=== PATIENT | male | born 1995 | race Caucasian/White ===

== ENCOUNTER 2021-12-09 19:51 | Emergency (ER) | payer MEDICAID, SELFPAY ==
[2021-12-09 21:39] VITALS: BP 0/0; PULSE 0; RESP 0; TEMP -17.7; TEMP 0; O2SAT 0
== END 2021-12-09 21:40 | disposition left against medical advice (07) ==
LOC: ER 21:25
PROVIDERS: Emergency Provider Emergency Medicine
DX: Z53.21 Procedure and treatment not carried out due to patient leaving prior to being seen by health care provider (principal)
CPT/HCPCS: 99211

== ENCOUNTER → 2022-04-28 08:22 | Outpatient (CLI) | payer MEDICAID, SELFPAY ==
--- NOTE | 2022-04-28 08:31 | US_ITS ---
FINAL REPORT CLINICAL HISTORY: ELEVATED LIVER ENZYMES FINDINGS: Sonographic images of the right upper quadrant were obtained. The pancreas is partially obscured.The liver is at the upper limits of normal at 20.3 cm and is fatty infiltrated.The gallbladder is surgically absent.There is no evidence of biliary ductal dilatation.The common duct measures 2 mm. Limited images of the right kidney are unremarkable. IMPRESSION: Fatty infiltrated liver at the upper limits of normal. Reviewed, Interpreted and Dictated by Bladimir Mosley III, MD Transcribed by Rosy Tariq Authenticated and [facility]
== END ==
PROVIDERS: Visit Provider Nurse Practitioner Family
DX: R94.5 Abnormal results of liver function studies (principal)
CPT/HCPCS: 76705

== ENCOUNTER 2023-03-02 09:14 | Emergency (ER) | payer MEDICAID, SELFPAY ==
[2023-03-02 09:15] VITALS: BP 136/79; PULSE 91; RESP 20; TEMP 36.6; O2SAT 100; BMI 29.7
--- NOTE | 2023-03-02 09:45 | EXP.UTC ---
Discharge Plan Disposition Patient Disposition: Home, Self-Care Condition: Good Prescriptions Prescriptions: New gentamicin 0.3 % drops 2 drp ophthalmic (eye) Q4H 7 Days Qty: 5 0RF Rx Instructions: left eye as directed azithromycin [Zithromax Z-Jared] 250 mg tablet See Rx Instructions .ROUTE .COMPLEX 5 Days Qty: 6 0RF Rx Instructions: For 250 mg dose pack: take 500 mg today (day 1), then 250 mg for 4 days (days 2-5) No Action insulin lispro 100 unit/mL insulin pen See Rx Instructions .ROUTE .COMPLEX Rx Instructions: . insulin glargine [Lantus Solostar U-100 Insulin] 100 unit/mL (3 mL) insulin pen See Rx Instructions .ROUTE .COMPLEX Rx Instructions: . Referrals Follow up/Referrals: Provider,Referral, MD [Primary Care Provider] - See instructions Activity Restrictions/Add. Instructions Additional Instructions/Restrictions: *Monitor Temp, Over the counter Motrin or Tylenol as directed/as needed Tylenol every 4 hours and Motrin every 6 hours (as long as your family doctor has told you that you can take it) for fever or pain. and straight to ER if unable to lower temp less than 101.0 after medication given *Warm salt water gargles may help to soothe the throat *Throat Lozenges? *Warm fluids like tea with honey may help to soothe the throat? *Sleep elevated *Humidifier/Vaporizer Take medication as precribed Use eye drops as prescribed Follow up IMMEDIATELY for new or worsening symptoms or no Noticeable improvement over the next 48-72 hours. 911 for difficulty breathing or swallowing Clinical Impressions Clinical Impression: Conjunctivitis, Sinusitis Stand Alone Forms Stand Alone Forms: Work/School Release Instructions Patient Instructions: DI for Sinusitis, Sinusitis Discharge ED Provider: Irene Chung [facility] [place] HPI General Stated complaint: LT eye redness w/drainage Mode of Arrival: Ambulatory Source of Information: Patient Limitations: No Limitations Time Seen by Provider: 03/02/23 09:45 Description of Symptoms (Recalled from Triage Doc. by RN): trouble with left eye HEENT Symptoms (Recalled from RN notes): Yes Resp Symptoms (Recalled from RN notes): No Skin Symptoms (Recalled from RN notes): No MS Symptoms (Recalled from RN notes): No Functional Status (Recalled from RN notes): n/a History of Present Illness Provider Complaint: Patient states that he has been having redness and drainage to left eye and having sinus pain and pressure for several weeks that hasnt got better States this morning he woke up with his left eye matted together Related Data Home Medications Medication Instructions Recorded Confirmed insulin glargine 100 unit/mL (3 See Rx Instructions .Route 03/02/23 03/02/23 mL) subcutaneous pen (Lantus .COMPLEX Diabetes Solostar U-100 Insulin) insulin lispro 100 unit/mL See Rx Instructions .Route 03/02/23 03/02/23 subcutaneous pen .COMPLEX Diabetes Previous Rx's Medication Instructions Recorded azithromycin 250 mg tablet See Rx Instructions PO .COMPLEX 5 03/02/23 (Zithromax Z-Jared) days #6 tabs gentamicin 0.3 % eye drops 2 drp ophthalmic (eye) Q4H 7 days 03/02/23 #5 mL Allergies Allergy/AdvReac Type Severity Reaction Status Date / Time No Known Allergies Allergy Verified 03/02/23 09:40 Worker's Comp Is this a Worker's Comp case?: [facility] Disclaimer: The information contained in this section may have been updated after the patient was seen, as this information can be updated by other users. Medical History (Updated 03/02/23 @ 09:51 by Irene Chung APRN) Diabetes Social History Smoking Status: Unknown if ever smoked alcohol intake: never current occupational status: employed Travel in the last 8 weeks: None ROS Obtained: Yes All systems reviewed & no additional complaints except as documented and Yes Systems reviewed as appropriate & no additional complaints
[2023-03-02 10:10] VITALS: BP 136/85; PULSE 64; RESP 20; TEMP 36.9; O2SAT 98
== END 2023-03-02 10:01 | disposition home or self-care (01) ==
PROVIDERS: Emergency Provider Nurse Practitioner
DX: H10.32 Unspecified acute conjunctivitis, left eye (principal); J01.90 Acute sinusitis, unspecified
CPT/HCPCS: 99212; 99214; G0463

== ENCOUNTER 2023-04-02 11:16 | Emergency (ER) | payer MEDICAID, SELFPAY ==
[2023-04-02 11:20] VITALS: BP 128/73; PULSE 87; RESP 21; TEMP 36.8; O2SAT 98; BMI 28.5
--- NOTE | 2023-04-02 11:30 | EXP.UTC ---
Discharge Plan Disposition Patient Disposition: Home, Self-Care Condition: Good Prescriptions Prescriptions: New azithromycin [Zithromax] 250 mg tablet 250 mg PO UD DOSE PK Qty: 6 0RF Rx Instructions: Take two (2) tablets today, then one (1) tablet days #2 thru #5 benzonatate [benzonatate] 100 mg capsule 100 mg PO TIDP PRN (Reason: Cough) Qty: 30 0RF methylprednisolone 4 mg Tablets,Dose Pack 4 mg PO DIRECTED Qty: 21 0RF No Action insulin lispro 100 unit/mL insulin pen See Rx Instructions .ROUTE .COMPLEX Rx Instructions: . insulin glargine [Lantus Solostar U-100 Insulin] 100 unit/mL (3 mL) insulin pen See Rx Instructions .ROUTE .COMPLEX Rx Instructions: . gentamicin 0.3 % drops 2 drp ophthalmic (eye) Q4H 7 Days Qty: 5 0RF Rx Instructions: left eye as directed azithromycin [Zithromax Z-Jared] 250 mg tablet See Rx Instructions .ROUTE .COMPLEX 5 Days Qty: 6 0RF Rx Instructions: For 250 mg dose pack: take 500 mg today (day 1), then 250 mg for 4 days (days 2-5) Referrals Follow up/Referrals: Provider,Referral, MD [Primary Care Provider] - See instructions Activity Restrictions/Add. Instructions Additional Instructions/Restrictions: Drink plenty of fluids. Take tylenol or ibuprofen for pain or fever. Take the medications as directed. Follow up with your regular doctor. GO TO THE ER FOR ANY WORSENING SYMPTOMS Clinical Impressions Clinical Impression: Sinusitis Stand Alone Forms Stand Alone Forms: Work/School Release Instructions Patient Instructions: DI for Sinusitis, Benzonatate, Methylprednisolone, Azithromycin Discharge ED Provider: Artemio Art [facility] [place] H[place] General Stated complaint: sinus pressure, SOA Mode of Arrival: Ambulatory Source of Information: Patient Limitations: No Limitations Time Seen by Provider: 04/02/23 11:30 Description of Symptoms (Recalled from Triage Doc. by RN): PATIENT C/O SOA AND NOSE BLEEDING X 2 DAYS. HE STATES HE THINKS HIS ALLERGIES GOT STIRRED UP AFTER DOING SOME LANDSCAPING HEENT Symptoms (Recalled from RN notes): Yes Resp Symptoms (Recalled from RN notes): No Skin Symptoms (Recalled from RN notes): No MS Symptoms (Recalled from RN notes): No Functional Status (Recalled from RN notes): WNL History of Present Illness Provider Complaint: He has had worsening sinus congestion and sinus drainage for the past 2 days. Related Data Home Medications Medication Instructions Recorded Confirmed insulin glargine 100 unit/mL (3 See Rx Instructions .Route 03/02/23 03/02/23 mL) subcutaneous pen (Lantus .COMPLEX Diabetes Solostar U-100 Insulin) insulin lispro 100 unit/mL See Rx Instructions .Route 03/02/23 03/02/23 subcutaneous pen .COMPLEX Diabetes Previous Rx's Medication Instructions Recorded azithromycin 250 mg tablet See Rx Instructions PO .COMPLEX 5 03/02/23 (Zithromax Z-Jared) days #6 tabs gentamicin 0.3 % eye drops 2 drp ophthalmic (eye) Q4H 7 days 03/02/23 #5 mL azithromycin 250 mg tablet 250 mg PO UD DOSE PK #6 tabs 04/02/23 (Zithromax) benzonatate 100 mg capsule 100 mg PO TIDP PRN Cough #30 caps 04/02/23 methylprednisolone 4 mg tablets in 4 mg PO DIRECTED #21 tabs 04/02/23 a dose pack Allergies Allergy/AdvReac Type Severity Reaction Status Date / Time No Known Allergies Allergy Verified 03/02/23 09:40 Worker's Comp Is this a Worker's Comp case?: No [facility] Disclaimer: The information contained in this section may have been updated after the patient was seen, as this information can be updated by other users. Medical History Diabetes Diabetes mellitus type 1 Surgical History History of cholecystectomy Social History Smoking Status: Unknown if ever smoked alcohol intake: never current oc
[2023-04-02 12:25] VITALS: BP 128/73; PULSE 87; RESP 21; TEMP 36.8; O2SAT 98
== END 2023-04-02 12:28 | disposition home or self-care (01) ==
PROVIDERS: Emergency Provider Nurse Practitioner Family
DX: J01.90 Acute sinusitis, unspecified; E10.9 Type 1 diabetes mellitus without complications; Z79.4 Long term (current) use of insulin
CPT/HCPCS: 99212; 99214; G0463

== ENCOUNTER 2023-12-28 11:47 | Emergency (ER) | payer MEDICAID, SELFPAY ==
[2023-12-28 12:38] VITALS: BP 133/69; PULSE 117; RESP 18; TEMP 36.9; O2SAT 98; BMI 28.8
--- NOTE | 2023-12-28 13:00 | EXP.UTC ---
Discharge Plan Disposition Patient Disposition: Home, Self-Care Condition: Good Prescriptions Prescriptions: New azithromycin [Zithromax] 250 mg tablet 250 mg PO UD DOSE PK Qty: 6 0RF Rx Instructions: Take two (2) tablets today, then one (1) tablet days #2 thru #5 [id number] [Bromfed DM] 2-30-10 mg/5 mL Syrup 5 ml PO Q6H PRN (Reason: Cough) Qty: 240 0RF ondansetron 4 mg Tablet,Disintegrating 4 mg PO Q8H PRN (Reason: Nausea) Qty: 12 0RF No Action insulin lispro 100 unit/mL insulin pen See Rx Instructions .ROUTE .COMPLEX Rx Instructions: . Referrals Follow up/Referrals: Provider,Referral, MD [Primary Care Provider] - See instructions Activity Restrictions/Add. Instructions Additional Instructions/Restrictions: Drink plenty of fluids. Take tylenol or ibuprofen for pain or fever. Take the medications as directed. Follow up with your regular doctor. GO TO THE ER FOR ANY WORSENING SYMPTOMS Clinical Impressions Clinical Impression: Acute viral syndrome, Bronchitis, Diabetes Stand Alone Forms Stand Alone Forms: Work/School Release Instructions Patient Instructions: DI for Acute Bronchitis, DI for Viral Syndrome Discharge ED Provider: Artemio Art [facility] General Stated complaint: soa, cough, headache and chill Time Seen by Provider: 12/28/23 13:00 History of Present Illness Provider Complaint: He states that for the past 1 day he has had fever, chills, body aches, cough, and malaise. He is a type 1 diabetic. Related Data Home Medications Medication Instructions Recorded Confirmed insulin lispro 100 unit/mL See Rx Instructions .Route 03/02/23 12/28/23 subcutaneous pen .COMPLEX Diabetes Previous Rx's Medication Instructions Recorded azithromycin 250 mg tablet 250 mg PO UD DOSE PK #6 tabs 12/28/23 (Zithromax) [id number] 5 ml PO Q6H PRN Cough #240 mL 12/28/23 2 mg-30 mg-10 mg/5 mL oral syrup (Bromfed DM) ondansetron 4 mg disintegrating 4 mg PO Q8H PRN Nausea #12 tabs 12/28/23 tablet Allergies Allergy/AdvReac Type Severity Reaction Status Date / Time No Known Allergies Allergy Verified 12/28/23 13:11 [facility] Disclaimer: The information contained in this section may have been updated after the patient was seen, as this information can be updated by other users. Medical History Diabetes Diabetes mellitus type 1 Surgical History History of cholecystectomy Social History Smoking Status: Unknown if ever smoked alcohol intake: never current occupational status: employed Travel in the last 8 weeks: None ROS Obtained: Yes All systems reviewed & no additional complaints except as documented Constitutional Constitutional: Reports chills and Reports fever(s) Eyes Eyes: Denies eye discharge ENT Ears, Nose, Mouth, and Throat: Reports as per HPI Cardiovascular Cardiovascular: Denies chest pain Respiratory Respiratory: Denies chest congestion and Reports cough Gastrointestinal Gastrointestingal: Reports nausea; Denies abdominal pain, constipation, cramping, diarrhea or vomiting Musculoskeletal Musculoskeletal: Denies arthralgias Integumentary/Breasts Skin/Breast: Denies rash Neurologic Neurologic: Denies paresthesias Physical Exam General General appearance: alert and in no apparent distress Eye Eye exam: Present normal appearance, PERRL and EOMI ENT ENT exam: Present mucous membranes moist and normal external ear exam Expanded ENT Exam External ear exam: Present normal external inspection TM/Canal exam: Bilateral TM: erythema and bulging Nose exam: Absent sinus tenderness Nasal speculum exam: Bilateral: normal Mouth exam: Present normal external inspection; Absent drooling Teeth exam: Present normal inspection Throat exam: Present tonsillar erythema and tonsillomegaly Neck Neck exam: Present normal inspection, full ROM and trachea midline; Absent tenderness, lymphadenopathy or thyromegaly Chest Chest inspection: Present normal inspection and symmetric chest wall rise; Absent tenderness or rash Respiratory Respiratory exam: Present normal lung sounds bilaterally; Absent respiratory distress, wheezes, stridor or accessory muscle use Cardiovascular Cardiovascular exam: Present regular rate, normal rhythm and normal heart sounds Abdominal Exam Abdominal exam: Present soft; Absent distention, tenderness, guarding, rebound or rigidity Extremities Exam Extremities exam: Present normal inspection, full ROM and normal capillary refill; Absent tenderness or calf tenderness Back Exam Back exam: Present normal inspection and full ROM; Absent tenderness Neurological Exam Neurological exam: Present alert and oriented X3 Psychiatric Psychiatric exam: Present normal affect and normal mood Skin Skin exam: Present warm, dry, intact and normal color Lymphatic Lymphatic Findings: no adenopathy Medical Decision Making Medical Records Medical records reviewed: No I reviewed the patient's medical records. Lux Inquiry Pt receiving controlled substance: No Lab Data Lab results reviewed: Yes I reviewed the patient's lab results.
[2023-12-28 13:22] LABS: POC Glucose,Bedside 252 (70-110)
[2023-12-28 13:41] VITALS: BP 133/69; PULSE 117; RESP 18; TEMP 36.9; O2SAT 98
[2023-12-28 13:43] LABS: Adenovirus,PCR Not Detected (NotDetected); Coronavirus 19, PCR Not Detected (NotDetected); Coronavirus 229E Not Detected (NotDetected); Coronavirus NL63 Not Detected (NotDetected); Coronavirus OC43 Not Detected (NotDetected); Coronovirus HKU1,PCR Not Detected (NotDetected); Human Metapneumovirus Not Detected (NotDetected); Influenza AH1, 2009 Not Detected (NotDetected); Influenza AH1, PCR Not Detected (NotDetected); Influenza AH3,PCR Not Detected (NotDetected); Influenza B, PCR Not Detected (NotDetected); Parainfluenza 1, PCR Not Detected (NotDetected); Parainfluenza 2, PCR Not Detected (NotDetected); Parainfluenza 3, PCR Not Detected (NotDetected); Parainfluenza 4, PCR Not Detected (NotDetected); Respiratory Syncytial Virus Not Detected (NotDetected); Rhinovirus/Enterovirus Not Detected (NotDetected)
[2023-12-28 16:21] LABS: Influenza A, PCR Detected (NotDetected)
== END 2023-12-28 13:41 | disposition home or self-care (01) ==
PROVIDERS: Emergency Provider Nurse Practitioner Family
DX: J10.1 Influenza due to other identified influenza virus with other respiratory manifestations (principal); J20.9 Acute bronchitis, unspecified; E10.65 Type 1 diabetes mellitus with hyperglycemia; R11.0 Nausea; R05.9 Cough, unspecified; R50.9 Fever, unspecified; R53.81 Other malaise; M79.18 Myalgia, other site
CPT/HCPCS: 82962; 87632; 87635; 99212; 99214; G0463

== ENCOUNTER 2024-04-19 16:46 | Emergency (ER) | payer MEDICAID, SELFPAY ==
[2024-04-19 17:40] VITALS: BP 111/80; PULSE 103; RESP 20; TEMP 36.7; O2SAT 97; BMI 30.5
--- NOTE | 2024-04-19 18:09 | ED_ITS ---
Discharge Plan Disposition Patient Disposition: Home, Self-Care Condition: Good Prescriptions Prescriptions: New amoxicillin 875 mg tablet 875 mg PO Q12H Qty: 20 0RF No Action insulin lispro 100 unit/mL insulin pen See Rx Instructions .ROUTE .COMPLEX Rx Instructions: 5 TIMES/DAY Referrals Follow up/Referrals: Provider,Referral, [Primary Care Provider] - See instructions Activity Restrictions/Add. Instructions Additional Instructions/Restrictions: *Monitor Temp, Over the counter Motrin or Tylenol as directed/as needed Tylenol every 4 hours and Motrin every 6 hours (as long as your family doctor has told you that you can take it) for fever or pain. and straight to ER if unable to lower temp less than 101.0 after medication given *Warm salt water gargles may help to soothe the throat *Throat Lozenges? *Warm fluids like tea with honey may help to soothe the throat? *Sleep elevated *Humidifier/Vaporizer *Flonase 2 sprays in each nostril daily but be aware that it may take 2-3 days before you notice improvement *Bromfed may cause drowsiness. Know how it effects you (your child) before driving, caring for small child, or sending your child to school. Not other antihistamines/allergy medications while taking bromfed Your throat swab was sent for culture. Those results are typically sent to your primary care. Be sure to follow up in 2-3 days with your family doctor/primary care physician if no improvement so they can review those result and treat if necessary. If you don?t have a primary care doctor, I recommend you get one but in the mean time, you will have to return to a walk in clinic Follow up IMMEDIATELY for new or worsening symptoms or no Noticeable improvement over the next 48-72 hours. 911 for difficulty breathing or swallowing Clinical Impressions Clinical Impression: Otitis media Instructions Patient Instructions: Middle Ear Infection, Amoxicillin Discharge ED Provider: Irene Chung [facility] [place] HPI General Stated complaint: ear ache, poss sinus inf Mode of Arrival: Ambulatory Source of Information: Patient Limitations: No Limitations Time Seen by Provider: 04/19/24 18:09 Description of Symptoms (Recalled from Triage Doc. by RN): PATIENT C/O RIGHT EAR PAIN, COUGH, SINUS DRAINAGE, CONGESITON AND HEADACHE THAT STARTED YESTERDAY HEENT Symptoms (Recalled from RN notes): Yes Resp Symptoms (Recalled from RN notes): Yes Skin Symptoms (Recalled from RN notes): No MS Symptoms (Recalled from RN notes): No Functional Status (Recalled from RN notes): WNL History of Present Illness Provider Complaint: Patient states that he has been having pain in his right ear, sinus congestion and pressure and over all not feeling well for several days States that his ear was killing him last night and kept him up most of the night hurting Related Data Home Medications Medication Instructions Recorded Confirmed insulin lispro 100 unit/mL See Rx Instructions .Route 03/02/23 04/19/24 subcutaneous pen .COMPLEX Diabetes Previous Rx's Medication Instructions Recorded amoxicillin 875 mg tablet 875 mg PO Q12H #20 tabs 04/19/24 Allergies Allergy/AdvReac Type Severity Reaction Status Date / Time No Known Allergies Allergy Verified 12/28/23 13:11 Worker's Comp Is this a Worker's Comp case?: No [facility] Disclaimer: The information contained in this section may have been updated after the patient was seen, as this information can be updated by other users. Medical History Diabetes Diabetes mellitus type 1 Surgical History History of cholecystectomy Social History Smoking Status: Unknown if ever smoked alcohol intake: never current occupational status: employed Travel in the last 8 weeks: None ROS Obtained: Yes All systems reviewed & no additional complaints except as documented and Yes Systems reviewed as appropriate & no additional complaints except as documented Constitutional Constitutional: Reports system reviewed and no additional complaints, except as documented, Reports as per HPI and Reports headache(s) ENT Ears, Nose, Mouth, and Throat: Reports system reviewed and no additional complaints, except as documented, Reports as per HPI, Reports otalgia, Reports headache(s), Reports sinus pain and Reports sinus pressure Cardiovascular Cardiovascular: Reports system reviewed and no additional complaints, except as documented and Reports as per HPI Respiratory Respiratory: Reports system reviewed and no additional complaints, except as documented and Reports as per HPI Gastrointestinal Gastrointestingal: Reports system reviewed and no additional complaints, except as documented and as per HPI Neurologic Neurologic: Reports headache(s) Physical Exam General General appearance: alert and in no apparent distress ENT ENT exam: Present mucous membranes moist Expanded ENT Exam TM/Canal exam: Right TM: erythema and bulging Nose exam: Present sinus tenderness Respiratory Respiratory exam: Present normal lung sounds bilaterally; Absent respiratory distress or wheezes Cardiovascular Cardiovascular exam: Present regular rate, normal rhythm and normal heart sounds Abdominal Exam Abdominal exam: Present soft and normal bowel sounds; Absent distention or tenderness Neurological Exam Neurological exam: Present alert, oriented X3 and normal gait Medical Decision Making Lux Inquiry Pt receiving controlled substance: No Lux was queried for this patient: No Vital Signs: 04/19/24 17:40 Temperature 98.1 F Temperature Source Oral Pulse Rate [Left Brachial] 103 H Respiratory Rate 20 Blood Pressure [Left Arm] 111/80 Blood Pressure Mean [Left Arm] 90 Blood Pressure Source [Left Arm] Automatic Cuff Blood Pressure Position [Left Arm] Sitting 02 Sat by Pulse Oximetry 97 Oxygen Delivery Method Room Air
[2024-04-19 18:21] VITALS: BP 111/80; PULSE 103; RESP 20; TEMP 36.7; O2SAT 97
== END 2024-04-19 18:23 | disposition home or self-care (01) ==
PROVIDERS: Emergency Provider Nurse Practitioner
DX: H66.91 Otitis media, unspecified, right ear (principal); R09.81 Nasal congestion
CPT/HCPCS: 99212; 99214; G0463

== ENCOUNTER 2024-06-09 14:30 | Outpatient (CLI) | payer MEDICAID, SELFPAY ==
[2024-06-09 16:58] LABS: Creatinine,Urine Random 47 mg/dL (Not Estab.)
[2024-06-09 17:02] LABS: Microalbumin < 6.000 mg/L (0-16.7)
[2024-06-12 16:54] LABS: Hemoglobin A1C 9.4 % (4.0-6.0)
[2024-06-12 17:07] LABS: Glucose,Random 95 mg/dL (74-100)
== END 2024-06-09 23:59 | disposition home or self-care (01) ==
LOC: LAB 14:32
PROVIDERS: PCP Nurse Practitioner Family; Visit Provider Nurse Practitioner Family
DX: E10.65 Type 1 diabetes mellitus with hyperglycemia (principal)
CPT/HCPCS: 36415; 82043; 82570; 82947; 83036

== ENCOUNTER 2024-06-12 15:50 | Outpatient (CLI) | payer MEDICAID, SELFPAY | END 2024-06-12 23:59 | disposition home or self-care (01) | LOC: LAB 15:51 | PROVIDERS: Visit Provider Nurse Practitioner Family | DX: Z02.9 Encounter for administrative examinations, unspecified (principal) ==

== ENCOUNTER 2025-02-18 13:51 | Outpatient (CLI) | payer MEDICAID, SELFPAY ==
[2025-02-18 14:57] LABS: Alanine Aminotransferase 23 U/L (12-78); Albumin Level 3.8 g/dl (3.5-5.0); Albumin/Globulin Ratio 1.4 (1.1-1.8); Alkaline Phosphatase 62 U/L (38-126); Anion Gap 9.8 mEq/L (5-15); Aspartate Amino Transferase 31 U/L (17-59); Bilirubin,Total 0.9 mg/dl (0.2-1.3); Blood Urea Nitrogen 13 mg/dl (9-20); Calcium 9.5 mg/dl (8.4-10.2); Carbon Dioxide 27 mmol/L (22.0-30.0); Chloride 105 mmol/L (98-107); Chol/HDL Ratio 2.9 (1-3.5); Cholesterol 123 mg/dl (140-200); Estimated Glomerular Filt Rate 100 ml/min (>60); GFR (African American) 121 ML/MIN (>60); Globulin 2.8 g/dL (1.3-3.2); Glucose 108 mg/dl (74-100); HDL Cholesterol 42 mg/dl (40-60); Potassium 3.8 mmoL/L (3.5-5.1); Sodium 138 mmol/L (136-145); Total Protein,Serum 6.6 g/dl (6.3-8.2); Triglycerides 75 mg/dl (30-150); VLDL Cholesterol 15 mg/dL (0-40)
[2025-02-18 15:08] LABS: Direct LDL Cholesterol 58.73 mg/dL (100-129)
[2025-02-18 15:30] LABS: Thyroid Stimulating Hormone 1.13 uIU/mL (0.465-4.68)
[2025-02-18 15:59] LABS: 25-OH Vitamin D, Total 38.7 ng/mL (30-100); Free T4 (Free Thyroxine) 1.19 ng/dl (0.78-2.19)
== END 2025-02-18 23:59 | disposition home or self-care (01) ==
LOC: LAB 13:53
PROVIDERS: PCP Nurse Practitioner Family; Visit Provider Nurse Practitioner Family
DX: E55.9 Vitamin D deficiency, unspecified (principal); E78.2 Mixed hyperlipidemia; R53.83 Other fatigue
CPT/HCPCS: 36415; 80053; 80061; 82306; 84439; 84443

== ENCOUNTER 2025-06-02 07:56 | Emergency (ER) | payer SELFPAY ==
[2025-06-02 08:00] VITALS: BP 147/84; PULSE 77; O2SAT 97
--- OUTSIDE RECORDS SUMMARY | 2025-06-02 08:01 | XMS_ITS | Data Portability ---
Author Organization [facility] Address [address] [place] [address] Assessment No assessment recorded. Plan of Treatment Reminders Order Date Submit Date Provider Last Modified By Organization Details Last Modified Time Details Appointments None recorded. Lab CMP, serum or plasma 2024 025 [facility], [address], [address], [place], [address], 5 10:01:25 lipid panel, serum 2024 025 ADAM [facility], [address], [address], [place], [address], 5 16:04:09 TSH + free T4, serum 2024 025 [facility], [address], [address], [place], [address], 5 10:01:25 vitamin D, 25-hydroxy, total, serum 2024 025 ADAM [facility], [address], [address], [place], [address], 5 17:05:20 glucose, fingerstick , blood 2024 025 [facility], [address] [place] [address] , [place], [address], 5 17:02:21 HbA1c (hemoglobin A1c), blood 2024 025 [facility], [address] [place] [address] , [place], [address], 5 17:02:21 glucose, fingerstick , blood 2023 024 [facility], [address] [place] [address] , [place], [address], 4 18:05:18 HbA1c (hemoglobin A1c), blood 2023 024 [facility], [address] [place] [address] , [place], [address], 4 18:05:18 glucose, fingerstick , blood 2023 024 [facility], [address] [place] [address] , [place], [address], 4 15:28:24 HbA1c (hemoglobin A1c), blood 2023 024 [facility], [address] [place] [address] , [place], [address], 4 15:28:25 microalbumi n/creatinin e, mass ratio, urine 2023 024 [facility], [address] [place] [address] , [place], [address], 4 15:28:26 CMP, serum or plasma 2023 024 ADAM [facility], [address], [place], [address], 4 07:16:17 LDL, direct, serum 2023 024 ADAM [facility], [address], [address], [place], [address], 4 07:16:18 vitamin D, 25-hydroxy, total, serum 2023 024 ADAM [facility], [address], [address], [place], [address], 4 07:16:19 TSH + free T4, serum 2023 024 ADAM [facility], [address], [address], [place], [address], 4 07:16:17 glucose, fingerstick , blood 2023 024 [facility], [address] [place] [address] , [place], [address], 4 14:01:45 HbA1c (hemoglobin A1c), blood 2023 024 [facility], [address] [place] [address] , [place], [address], 4 14:01:46 glucose, fingerstick , blood 2022 023 [facility], [address] [place] [address] , [place], [address], 3 14:17:54 HbA1c (hemoglobin A1c), blood 2022 023 [facility], [address] [place] [address] , [place], [address], 3 14:17:54 Referral diabetic ophthalmolo gy referral 2024 025 Tab Sandoval MD, [address] [place] [address] , [place], [address], 5 15:06:16 Procedures None recorded. Surgeries None recorded. Imaging MRI, knee, w/o contrast 2023 024 [facility] [address] [place] [address] [address] [place], [address], 5 10:51:17 photo, eye, fundus 2023 024 ADAM Not available 4 10:37:19 photo, eye, fundus 2022 023 [email or web address] Not available 3 13:09:10 Medication Orders Zithromax Z-Jared 250 mg tablet 2024 025 [facility], [address] [place] [address] [address] [place], [place], [id number], 5 15:41:20 insulin lispro (U-100) 100 unit/mL subcutaneou s pen [address] [facility], [address] [place] [address] [address] [place], [id number], 4 17:12:36 omeprazole 20 mg capsule,del ayed release 2023 024 [facility], [address] [place] [address] [address] [place], [id number], 4 15:45:23 Lantus Solostar U-100 Insulin 100 unit/mL (3 mL) subcutaneou s pen [address] [facility], [address] [place] [address] [address] [place], [id number], 4 14:54:54 Easy Touch Test Strip 2023 024 [facility], [address] [place] [address] [address] [place], [id number], 15:45:25 Patient TargetsNo targets recorded. Patient Instructions Encounter Date Encounter Id Patient Instructions Last Modified By Organization Details Last Modified Time 11/25/2022 [id number] learning about type 1 diabetes rjessee Not available 11/25/2022 14:17:54 type 1 diabetes: care instructions rjessee Not available 11/25/2022 14:17:54 learning about healthy weight rjessee Not available 11/25/2022 14:17:54 Continue Lantus 35 units twice a day. Continue Humalog before each meal: 6 to 20 units. Sent order for Omnipod gen 5 pump and pods to our pharmacy. Let me know when you receive the pump and I will get you set up for training. Bring your Dexcom to training as well. I want to see you back in 3 months. Will do labs at that visit. rjessee Not available 11/25/2022 14:20:13 01/12/2024 [id number] learning about healthy weight rjessee Not available 01/12/2024 14:01:40 weight managemen t education rjessee Not available 01/12/2024 14:01:40 diabetic foot exam* [email or web address] Not available 03/15/2024 14:22:27 Increase Lantus to 45 units twice a day. Increase Humalog before each meal to 20 units before each meal. If your sugar is over 300, take 30 units. We will call you with your lab and retinavue results. I want to see you back in 3 months. rjessee Not available 01/12/2024 13:53:22 05/03/2024 [id number] learning about healthy weight rjessee Not available 05/03/2024 15:28:21 weight managemen t education rjessee Not available 05/03/2024 15:28:21 Continue Lantus 45 units twice a day. Increase Humalog to 30 units before each meal. Will send in order for Medtronic 780G insulin pump with guardian 4 sensor. I want to see you back in 3 months. rjessee Not available 05/03/2024 15:07:28 10/04/2024 [id number] learning about healthy weight rjessee Not available 10/04/2024 18:05:18 weight managemen t education rjessee Not available 10/04/2024 18:05:19 pump and meter download and interpretation* Not available 10/11/2024 07:18:29 I increased the basal rate between 4 am and midnight by 20% on your Medtronic 780G pump. Will get you set up for MRI of your left knee. I would like to see you back in 3 months but if your sugars continue to average over 200, give me a call. rjessee Not available 10/04/2024 18:05:09 01/09/2025 [id number] pump and meter download and interpretation* Not available 01/16/2025 07:09:22 learning about type 1 diabetes rjessee Not available 01/09/2025 17:02:21 type 1 diabetes: care instructions rjessee Not available 01/09/2025 17:02:21 upper respirator y infection (cold): care instructions rjessee Not available 01/09/2025 17:02:21 learning about healthy weight rjessee Not available 01/09/2025 17:02:21 weight managemen t education rjessee Not available 01/09/2025 17:02:21 I turned on smar t guard on your Medtronic 780G pump. We will get you set up for diabetic eye exam. 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 I would like to see you back in 3 months. rjessee Not available 01/09/2025 17:07:51 Reason for Referral Diabetic Ophthalmology Refer ral for Hyperglycemia due to type 1 diabetes mellitus Referring Physician: Jamilah Summers, Family Medicine, Encounter Date: 01/09/2025 Results Created Date Observation Date Name Description Value Unit Range Abnormal Flag Note LastModifiedBy Organization Detail LastModifiedTime 11/25/1911/25/2022 HbA1c (hemo globi n A1c), blood HbA1C 8.6 % Not Available [address] , [place], [address], 11/25/2022 09:40:10 11/25/19 23 11/25/2022 gluco se, finge rstic k, blood Blood Glucose: mg/dl 100 Not Available [facility] [address] [facility] , [place], [address], 11/25/2022 09:40:09 01/12/20 24 01/13/2024 TSH+F REE T4 TSH 1.570 uIU/m L 0.450- 4.500 Not Available [facility] ([facility]) [address] [place], [address], 01/13/2024 07:16:17 01/12/20 24 01/13/2024 TSH+F REE T4 T4,free(dire ct) 1.24 NG/dL 0.82-1 .77 Not Available [facility] ([facility]) [address] [place], [address], 01/13/2024 07:16:17 01/12/20 24 01/13/2024 COMP. METAB OLIC PANEL (14) glucose 302 mg/dL 70-99 above high normal Not Available [facility] ([facility]) [address] [place], [address], 01/13/2024 07:16:17 01/12/20 24 01/13/2024 COMP. METAB OLIC PANEL (14) BUN 10 mg/dL 6-20 Not Available [facility] ([facility]) [address] [place], [address], 01/13/2024 07:16:17 01/12/20 24 01/13/2024 COMP. METAB OLIC PANEL (14) creatinine 1.02 mg/dL 0.76-1 .27 Not Available [facility] ([facility]) [address] [place], [address], 01/13/2024 07:16:17 01/12/20 24 01/13/2024 COMP. METAB OLIC PANEL (14) eGFR 103 mL/mi n/1.7 3 >59 Not Available [facility] ([facility]) [address] [facility], [place], [address], 01/13/2024 07:16:17 01/12/20 24 01/13/2024 COMP. METAB OLIC PANEL (14) BUN/creatini ne ratio 10 9-20 Not Available [facility] ([facility]) [address] [facility], [place], [address], 01/13/2024 07:16:17 01/12/20 24 01/13/2024 COMP. METAB OLIC PANEL (14) sodium 138 mmol/ L 134-14 4 Not Available [facility] ([facility]) [address] [place] [place], [address], 01/13/2024 07:16:17 01/12/20 24 01/13/2024 COMP. METAB OLIC PANEL (14) potassium 4.1 mmol/ L 3.5-5. 2 Not Available [facility] ([facility]) [address] [facility], [place], [address], 01/13/2024 07:16:17 01/12/20 24 01/13/2024 COMP. METAB OLIC PANEL (14) chloride 100 mmol/ L 96-106 Not Available [facility] ([facility]) [address] [place] [place], [address], 01/13/2024 07:16:17 01/12/20 24 01/13/2024 COMP. METAB OLIC PANEL (14) carbon dioxide, total 20 mmol/ L 20-29 Not Available [facility] ([facility]) [address] [facility], [place], [address], 01/13/2024 07:16:17 01/12/20 24 01/13/2024 COMP. METAB OLIC PANEL (14) calcium 8.9 mg/dL 8.7-10 .2 Not Available [facility] ([facility]) [address] [place] [place], [address], 01/13/2024 07:16:17 01/12/20 24 01/13/2024 COMP. METAB OLIC PANEL (14) protein, total 6.3 g/dL 6.0-8. 5 Not Available [facility] ([facility]) [address] [place], [address], 01/13/2024 07:16:17 01/12/20 24 01/13/2024 COMP. METAB OLIC PANEL (14) albumin 4.0 g/dL 4.3-5. 2 below low normal Not Available [facility] ([facility]) [address] [place], [address], 01/13/2024 07:16:17 01/12/20 24 01/13/2024 COMP. METAB OLIC PANEL (14) globulin, total 2.3 g/dL 1.5-4. 5 Not Available [facility] ([facility]) [address] [place], [address], 01/13/2024 07:16:17 01/12/20 24 01/13/2024 COMP. METAB OLIC PANEL (14) A/G ratio 1.7 1.2-2. 2 Not Available [facility] ([facility]) [address] [place], [address], 01/13/2024 07:16:17 01/12/20 24 01/13/2024 COMP. METAB OLIC PANEL (14) bilirubin, total 0.3 mg/dL 0.0-1. 2 Not Available [facility] ([facility]) [address] [place], [address], 01/13/2024 07:16:17 01/12/20 24 01/13/2024 COMP. METAB OLIC PANEL (14) alkaline phosphatase 96 IU/L 44-121 Not Available [facility]) [address] [place], [address], 01/13/2024 07:16:17 01/12/20 24 01/13/2024 COMP. METAB OLIC PANEL (14) AST (SGOT) 35 IU/L 0-40 Not Available [facility] ([facility]) [address] [place], [address], 01/13/2024 07:16:17 01/12/20 24 01/13/2024 COMP. METAB OLIC PANEL (14) ALT (SGPT) 38 IU/L 0-44 Not Available [facility] ([facility]) [address] [place], [address], 01/13/2024 07:16:17 01/12/20 24 01/13/2024 LDL ADALID STERO L (DIRE CT) LDL chol. (direct) 96 mg/dL 0-99 Not Available [facility] ([facility]) [address] [place], [address], 01/13/2024 07:16:18 01/12/20 24 01/13/2024 LDL ADALID STERO L (DIRE CT) comment: [employer] Not Available [facility] ([facility]) [address] [place], [address], 01/13/2024 07:16:18 01/12/20 24 01/13/2024 VITAM IN D, 25-HY DROXY vitamin D, 25-hydroxy 18.3 NG/mL 30.0-1 00.0 below low normal Vitam in D defic iency has been defin ed by the Insti tute of Medic ine and an Endoc rine Socie ty pract ice guide line as a level of serum 25-OH vitam in D less than 20 ng/mL (1,2) . The Endoc rine Socie ty went on to furth er defin e vitam in D insuf ficie ncy as a level betwe en 21 and 29 ng/mL (2). 1. IOM (Inst itute of Medic ine). 2010. Dieta ry refer ence madonna es for calci um and D. Tip cook [place]: The [facility]io [facility] Press . 2. Holic billie [place], [facility] [place], Philomena off-F errar i MORENO, et al. Evalu ation , treat ment, and preve ntion of vitam in D defic iency : an Endoc rine Socie ty clini pinky pract ice guide line. JCEM. 2010; 96(7) :1911 -30. Not Available [facility] ([facility]) [address] [facility], [place], [address], 01/13/2024 07:16:19 01/12/20 24 01/12/2024 HbA1c (hemo globi n A1c), blood HbA1C 9.8 % Not Available [address] , [place], [address], 01/11/2024 18:03:31 01/12/20 24 01/12/2024 gluco se, bud rstic k, blood Blood Glucose: mg/dl 285 Not Available [address] , [place], [address], 01/11/2024 18:03:31 05/03/20 24 05/03/2024 HbA1c (hemo globi n A1c), blood HbA1C 11.0 % Not Available [address] , [place], [address], 05/02/2024 13:24:17 05/03/20 24 05/03/2024 gluco bud gonzalez rstic k, blood Blood Glucose: mg/dl 197 Not Available [address] , [place], [address], 05/02/2024 13:24:16 05/03/20 24 05/03/2024 micro album in/cr eatin ine, mass ratio , urine Microalbumin 10 mg/L Not Available [address] , [place], [address], 05/03/2024 14:55:50 05/03/20 24 05/03/2024 micro album in/cr eatin ine, mass ratio , urine Creatinine 50 mg/dL Not Available [address] , [place], [address], 05/03/2024 14:55:50 05/03/20 24 05/03/2024 micro album in/cr eatin ine, mass ratio , urine Ratio <30 mg/g normal Not Available [address] , [place], [address], 05/03/2024 14:55:50 10/04/20 24 10/04/2024 HbA1c (hemo globi n A1c), blood HbA1C 10.2 % Not Available [address] , [place], [address], 10/04/2024 10:27:41 10/04/20 24 10/04/2024 gluco se, finge rstic k, blood Blood Glucose: mg/dl 91 Not Available [address] , [place], [address], 10/04/2024 10:27:41 01/09/20 25 01/09/2025 HbA1c (hemo globi n A1c), blood HbA1C 9.8 % Not Available [address] , [place], [address], 01/09/2025 09:51:56 01/09/20 25 01/09/2025 gluco se, finge rstic k, blood Blood Glucose: mg/dl 267 Not Available [address] [place], [address], 01/09/2025 09:51:56 11/26/19 23 11/25/2022 diabe tic eye exam* No observ ation record ed. Not Available 2022 14:57:35 01/14/20 24 01/12/2024 photo , eye, fundu s No observ ation record ed. Not Available 2023 17:26:58 Result Notes None recorded. Problems Name Problem SNOMED Code Status Onset Date Resolution Date Notes Provider Name and Address Organization Details Recorded Time Type 1 diabetes mellitus 13202998 Active 021 Darrell Martinez [facility], [place] - [facility] 15:13:33 Steatotic liver disease 636940697 Active 022 Jamilah Summers, P D DRIVER [address], [place], [address], [place] - [facility] 16:14:56 Problem Notes None recorded. Procedures Surgical History Date Name Laterality Status Provider Name and Address Organization Details Recorded Time 01/09/20 25 A1C level 9.1 and above completed Reinaldo Rundown App - [facility] 01/09/2025 16:50:40 10/04/20 24 A1C level 9.1 and above completed Reinaldo Rundown [facility] - [facility] 10/04/2024 17:16:08 05/03/20 24 Negative Microalbumin completed Reinaldo Rundown App - [facility] 05/03/2024 14:55:42 05/03/20 24 A1C level 9.1 and above completed Reinaldo Rundown [facility] - [facility] 05/03/2024 14:58:07 01/12/20 24 A1C level 9.1 and above completed Reinaldo Rundown App - [facility] 01/12/2024 13:39:00 11/25/19 23 A1C level 8.0 to 9.0 completed Reinaldo Rundown App - [facility] 11/25/2022 13:54:03 08/19/20 22 A1C level 8.0 to 9.0 completed Reinaldo Rundown [facility] - [facility] 08/19/2022 15:48:12 05/18/20 22 A1C level 9.1 and above completed Reinaldo Rundown App - [facility] 05/18/2022 15:53:49 02/03/20 22 A1C level 9.1 and above completed Reinaldo Smith MS - [facility] 02/02/2022 15:55:55 11/03/20 Negative Microalbumin completed Reinaldo COWAN [facility] 11/03/2021 15:08:20 11/03/20 21 A1C level 9.1 and above completed Reinaldo COWAN [facility] 11/03/2021 15:09:28 10/14/20 21 A1C level 9.1 and above completed Darrell Martinez MS - [facility] 10/14/2021 15:12:45 Cholecystectomy, laparoscopic completed Reinaldo Smith MS - [facility] 11/03/2021 15:04:34 Imaging Results None recorded. Procedure Notes None recorded. Medical Equipment None Reported. Allergies Allergen ID Allergen Name Allergen Category Reaction Reaction Severity Criticality Documentation Date Start Date Code Code System Note Provider Name and Address Organization Details Recorded Time 73603 Vaccine product containin g only Influenza virus antigen (medicina l product) medicatio n Not available Not available Not available 08/28/20162012 16499 24588 105 SNOMED Not Available [facility] 6 10:11:32 Medications Name Sig Start Date Stop Date Status Note LastModified by Organization Details LastModified Time azithromy lauren 250 mg tablet TAKE 2 TABLETS BY MOUTH ON DAY 1, THEN TAKE 1 TABLET DAILY ON DAYS 2-5 active Not Available Not Available No t Available FreeStyle Lancets 28 gauge USE THREE TIMES A DAY 01/12 completed Not Available Not Available Not Available amoxicill in 875 mg tablet TAKE 1 TABLET BY MOUTH EVERY 12 HOURS 05/03 completed Not Available Not Available Not Available Silvadene 1 % topical cream apply a 1/16 inch (1.5 mm) thick layer to entire burn area by topical route 2 times per day for 14 days 08/14 completed Silvaden e 1 % topical cream;Pr escribe Status: Prescrib ed on: 06/21/20 13 2:32PM;D iscontin ued Status: Disconti nued on: 08/14/20 13 10:47AM; User: [email or web address] Rodas on: 07/05/20 13;Indic ation: Burn Wound Infectio ns - (17.9583 01);Loida Mendenhall fied: 06/21/20 13 2:32PM Not Available Not Available Not Available gentamici n 0.3 % eye drops instill 2 DROPS IN THE LEFT EYE EVERY 4 HOURS FOR 7 DAYS DIRECTED 01/12 completed Not Available Not Available Not Available Humalog U-100 Insulin 100 unit/mL subcutane ous solution Average 60 units of insulin daily per insulin pump. 09/24 completed Humalog 100 unit/mL subcutan eous solution ;Prescri be Status: Prescrib ed on: 05/02/20 14 5:08PM;D iscontin ued Status: Disconti nued on: 09/24/20 14 2:17PM;U ser: [email or web address]; Est. Completi on: 10/29/20 14;Pharm acKillian ied: 05/02/20 14 5:08PM Not Available Not Available Not Available benzonata te 100 mg capsule TAKE ONE CAPSULE BY MOUTH THREE TIMES DAILY NEEDED FOR cough 01/12 completed Not Available Not Available Not Available oseltamiv ir 75 mg capsule TAKE ONE CAPSULE BY MOUTH TWICE DAILY -- FINISH ALL MEDICINE -- 01/12 completed Not Available Not Available Not Available triamcino lone acetonide 0.1 % topical ointment apply a thin layer to the affected area(s) by topical route 3 times per day for 30 days 08/08 completed triamcin olone acetonid e 0.1 % topical ointment ;Prescri be Status: Prescrib ed on: 12/22/19 14 1:30PM;D iscontin ued Status: Disconti nued on: 08/08/20 15 1:12PM;U ser: [email or web address];E st. Completi on: 04/21/20 14;Indic ation: Atopic Dermatit is - (12.6918 00);Phar Abdirashid fied: 12/22/19 14 1:30PM Not Available Not Available Not Available omeprazol e 20 mg capsule,d elayed release TAKE ONE CAPSULE BY MOUTH EVERY DAY active Not Available Not Available No t Available Novolog U-100 Insulin aspart 100 unit/mL subcutane ous solution USE DIRECTED via insulin pump max 200 units daily active Not Available Not Available No t Available methylpre dnisolone 4 mg tablets in a dose pack TAKE GANGA Pradhan TO PACKAGE INSTRUCT IONS --TAKE WITH FOOD-- -- FINISH ALL MEDICINE -- 01/12 completed Not Available Not Available Not Available albuterol sulfate HFA 90 mcg/actua tion aerosol inhaler inhale 2 puffs (180 mcg) by inhalati on route every 4-6 hours as needed for 14 days 09/24 completed albutero l sulfate 90 mcg/actu ation inhalati on HFA aerosol inhaler; Prescrib e Status: Prescrib ed on: 08/08/20 15 1:14PM;D iscontin ued Status: Disconti nued on: 09/24/20 15 2:14PM;U ser: melvin;E st. Completi on: 08/22/20 15;Indic ation: Bronchos pasm Preventi on - ();Joser Abdirashid fied: 08/08/20 15 1:14PM Not Available Not Available Not Available brompheni ramine-ps eudoephed rine-DM 2 mg-30 mg-10 mg/5 mL oral syrup TAKE 1 TEASPOON FUL (5 ML) BY MOUTH EVERY 6 HOURS NEEDED FOR cough 01/12 completed Not Available Not Available Not Available ondansetr on 4 mg disintegr ating tablet DISSOLVE ONE TABLET in MOUTH EVERY 8 HOURS NEEDED FOR NAUSEA 01/12 completed Not Available Not Available Not Available amoxicill in 875 mg-potass ium clavulana te 125 mg tablet Take 1 tablet every 12 hours by oral route for 10 days. 05/18 completed Not Available Not Available Not Available insulin lispro (U-100) 100 unit/mL subcutane ous pen INJECT SUBCUTAN EOUSLY DIRECTED UP TO 90 UNITS daily max daily DOSE is 90 units 10/04 completed Not Available Not Available Not Available Pen Needle 31 gauge x 1/4 use as directed 09/24 completed Pen Needle 31 gauge x 1/4 miscella neous needle;P rescribe Status: Prescrib ed on: 10/09/20 14 1:21PM;D iscontin ued Status: Disconti nued on: 09/24/20 15 2:29PM;U ser: [email or web address] ;Pharmac yVerifie d: 10/09/20 14 1:21PM Not Available Not Available Not Available azithromy lauren 1 qd 11/09 completed azithrom ycin 500mg;Re corded Status: Recorded on: 12/29/19 11 2:43PM;D iscontin ued Status: Disconti nued on: 11/09/20 11 3:10PM;U ser: rush long;Est. Completi on: 01/05/20 11;Indic ation: - (-5);Gwen nted: 12/29/19 11 Not Available Not Available Not Available Vitamin D 2,000 IU , every day active Not Available Not Available No t Available Phenergan DM 1 tsp qid 11/09 completed phenerga n dm;Recor ded Status: Recorded on: 12/29/19 11 2:43PM;D iscontin ued Status: Disconti nued on: 11/09/20 11 3:10PM;U ser: rush zapataEst. Completi on: 01/05/20 11;Indic ation: - (-5);Gwen nted: 12/29/19 11 Not Available Not Available Not Available Glucomete r 3 One that will be covered by his insuranc e per pharmacy 03/19 completed Glucomet er 3;Record ed Status: Recorded on: 08/15/20 13 2:23PM;D iscontin ued Status: Disconti nued on: 03/19/20 15 12:53PM; User: magno EstPranav Completi on: 09/14/20 13;Indic ation: - (-5) Not Available Not Available Not Available Levemir U-100 Insulin 100 unit/mL subcutane ous solution use as directed : inject SQ 18 units QHS 09/24 completed Levemir 100 unit/mL subcutan eous solution ;Prescri be Status: Prescrib ed on: 03/25/20 15 3:46PM;D iscontin ued Status: Disconti nued on: 09/24/20 15 2:29PM;U ser: darrell; Est. Completi on: 05/24/20 15;Pharm acyVerif ied: 03/25/20 15 3:46PM Not Available Not Available Not Available BD Ultra-Fin e Original Pen Needle 29 gauge x 1/2 USE DDIRECTE D TO INJECT INSULIN FOUR (4) TIMES DAILY 05/18 completed Not Available Not Available Not Available Insulin Syringe 1 mL 30 gauge x 5/16 use as directed , dx 250.00 09/24 completed Insulin Syringe 1 mL 30 gauge x 5/16 miscella neous syringe; Prescrib e Status: Prescrib ed on: 10/09/20 14 10:29AM; Disconti nued Status: Disconti nued on: 09/24/20 15 2:14PM;U ser: russella ;Pharmac yVerifie d: 10/09/20 14 10:29AM Not Available Not Available Not Available FreeStyle Lite Meter kit USE DIRECTED 01/12 completed Not Available Not Available Not Available Lantus Solostar U-100 Insulin 100 unit/mL (3 mL) subcutane ous pen INJECT 45 UNITS SUBCUTAN EOUSLY TWICE DAILY 05/03 completed Not Available Not Available Not Available cholecalc iferol (vitamin D3) 50 mcg (2,000 unit) capsule Take 1 capsule every day by oral route for 30 days. 01/12 completed Not Available Not Available Not Available BD Ultra-Fin e Zahira Pen Needle 32 gauge x 5/32 USE FIVE TIMES DAILY active Not Available Not Available No t Available OneTouch Verio test strips USE 1 STRIP 4 TIMES DAILY TO CHECK BLOOD GLUCOSE active Not Available Not Available No t Available V-GO 20 device use as directed for 30 days 03/22 completed VGO 20 miscella neous device;P rescribe Status: Prescrib ed on: 09/24/20 15 2:37PM;U ser: [email or web address]; Est. Completi on: 03/22/20 16;Indic ation: Diabetes Mellitus , Type I - (250.01) ;Pharmac yVerifie d: 09/24/20 15 2:37PM Not Available Not Available Not Available Levemir FlexTouch U-100 Insulin 100 unit/mL (3 mL) subcutane ous pen inject by subcutan eous route: 15 units QHS 11/05 completed Levemir FlexTouc h 100 unit/mL (3 mL) subcutan eous insulin pen;Kel rded Status: Recorded on: 09/24/20 14 2:17PM;D iscontin ued Status: Disconti nued on: 11/05/20 14 3:24PM;U ser: [email or web address] Not Available Not Available Not Available OneTouch Verio Flex Meter USE DIRECTED FOUR TIMES DAILY active Not Available Not Available No t Available Omnipod DASH PDM Kit (Gen 4) USE DIRECTED WITH DASH PODS. 10/04 completed Not Available Not Available Not Available OneTouch Delica Plus Lancet 33 gauge USE DIRECTED FOUR TIMES DAILY active Not Available Not Available No t Available insulin glargine- yfgn (U-100) 100 unit/mL (3 mL) subcutane ous pen inject 45 units twice a day by subcutan eous route for 90 days active Not Available Not Available No t Available Vitals Date Recorded Body height Body mass index (BMI) Body weight Body temperature Heart rate Oxygen saturation Oxygen saturation in Arterial blood by Pulse oximetry Respiratory rate Systolic And Diastolic Provider Name and Address Organization Details Last Updated DateTime 3 182.88 cm 27.1 kg/m2 70420.4 7 g 98 [degF] 110 /min 98 % 98 % 16 /min 126/72 mm[Hg] Reinaldo Smith [place] - [facility] 3 13:49:21 Date Recorded Body height Body mass index (BMI) Body weight Body temperature Heart rate Oxygen saturation Oxygen saturation in Arterial blood by Pulse oximetry Respiratory rate Systolic And Diastolic Provider Name and Address Organization Details Last Updated DateTime 5 182.88 cm 27.3 kg/m2 76765.1 7 g 98.2 [degF] 92 /min 98 % 98 % 18 /min 114/70 mm[Hg] Reinaldo COWAN - [facility] 5 16:48:15 Date Recorded Body height Body mass index (BMI) Body weight Body temperature Heart rate Oxygen saturation Oxygen saturation in Arterial blood by Pulse oximetry Respiratory rate Systolic And Diastolic Provider Name and Address Organization Details Last Updated DateTime 4 182.88 cm 29.9 kg/m2 41532.0 2 g 98.2 [degF] 94 /min 98 % 98 % 18 /min 130/80 mm[Hg] Reinaldo COWAN - [facility] 4 13:28:35 Date Recorded Body height Body mass index (BMI) Body weight Body temperature Heart rate Oxygen saturation Oxygen saturation in Arterial blood by Pulse oximetry Respiratory rate Systolic And Diastolic Provider Name and Address Organization Details Last Updated DateTime 4 182.88 cm 27.4 kg/m2 39640.7 6 g 98.4 [degF] 90 /min 98 % 98 % 18 /min 122/60 mm[Hg] Reinaldo COWAN - [facility] 4 14:54:07 Date Recorded Body height Body mass index (BMI) Body weight Body temperature Heart rate Oxygen saturation Oxygen saturation in Arterial blood by Pulse oximetry Respiratory rate Systolic And Diastolic Provider Name and Address Organization Details Last Updated DateTime 4 182.88 cm 26.6 kg/m2 94881.5 g 97.8 [degF] 86 /min 97 % 97 % 18 /min 122/60 mm[Hg] ReinaldoRenita Smith MS - [facility] 4 17:11:36 Social History Question Answer Notes LastModified by Organizat ion Details LastModified Time Tobacco Smoking Status Smoker, Current Status Unknown [place] Jordon alvarez [facility] 10/14/2021 14:36:46 Do You Have An Advance Directive? Yes [email or web address] Information not available 10/14/2021 Are You Blind Or Do You Have Difficulty Seeing? No [email or web address] Information not available 10/14/2021 Is Blood Transfusion Acceptable In An Emergency? No [email or web address] Information not available 10/14/2021 What Is Your Level Of Caffeine Consumption? Occasional [email or web address] Information not available 10/14/2021 How Much Tobacco Do You Chew? None Information not available 10/14/2021 In The 14 Days Before Symptom Onset, Have You Had Close Contact With A Laboratory-confir med COVID-19 While That Case Was Ill? No [email or web address] Information not available 10/14/2021 In The 14 Days Before Symptom Onset, Have You Had Close Contact With A Person Who Is Under Investigation For COVID-19 While That Person Was Ill? No [email or web address] Information not available 10/14/2021 Have You Been To An Area Known To Be High Risk For COVID-19? No Information not available 10/14/2021 Are You Deaf Or Do You Have Serious Difficulty Hearing? No [email or web address] Information not available 10/14/2021 What Type Of Diet Are You Following? REGULAR [email or web address] Information not available 10/14/2021 Which Illicit Or Recreational Drugs Have You Used? Meth Sober For 6 Years [email or web address] Information not available 10/14/2021 Have You Processed Blood Or Body Fluids From An Ebola Virus Disease Patient Without Appropriate PPE? No [email or web address] Information not available 10/14/2021 Do You Reside In Or Have You Traveled To An Area Where Ebola Virus Transmission Is Active? No [email or web address] Information not available 10/14/2021 What Is The Highest Grade Or Level Of School You Have Completed Or The Highest Degree You Have Received? [id number] [email or web address] Information not available 10/14/2021 Have There Been Any Changes To Your Family Or Social Situation? No [email or web address] Information no t available 10/14/2021 What Is The Fluoride Status Of Your Home? Unknown [email or web address] Information not available 10/14/2021 Have You Recently Or Are You Planning To Travel To An Area With Zika Virus? No Information not available 10/14/2021 How Many Years Have You Used Illicit Or Recreational Drugs? 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 Yes [email or web address] Information not available 10/14/2021 What Was The Date Of Your Most Recent Tobacco Screening? 01/09/2025 Information not available 01/09/2025 What Is Your Current Pack Years? [email or web address] Information not available 08/19/2022 Do You Use Protection During Sex? Always [email or web address] Information not available 10/14/2021 What Is Your Relationship Status? [email or web address] Information not available 10/14/2021 Do You Use Your Seat Belt Or Car Seat Routinely? Yes [email or web address] Information not available 10/14/2021 Are You Sexually Active? Yes [email or web address] Information not available 10/14/2021 Do You Have Smoke And Carbon Monoxide Detectors In Your Home? Yes [email or web address] Information not available 10/14/2021 At What Age Did You Start Smoking Tobacco? 20 [email or web address] Information not available 10/14/2021 Are You Passively Exposed To Smoke? No Information no t available 10/14/2021 How Much Tobacco Do You Smoke? 1 PPD Information not available 10/14/2021 Do You Use Sunscreen Routinely? No [email or web address] Information not available 10/14/2021 Has Tobacco Cessation Counseling Been Provided? Yes Information not available 01/12/2024 On What Date Was Tobacco Cessation Counseling Provided? 01/09/2025 Information not available 01/09/2025 How Many Years Have You Smoked Tobacco? 6 Information not available 10/14/2021 Do You Have Difficulty Walking Or Climbing Stairs? No Information not available 10/14/2021 Sex: Male Functional Status Question Answer Note LastModified by Organizat ion Details LastModified Time What is your level of alcohol consumption? None [email or web address] Information not available 10/14/2021 Do you or have you ever used smokeless tobacco? Never used smokeless tobacco [email or web address] Information not available 10/14/2021 Are you currently employed? No [email or web address] Information not available 10/14/2021 Do you have transportation difficulties? No [email or web address] Information not available 10/14/2021 Are you able to walk? YESWOREST [email or web address] Information not available 10/14/2021 Do you have difficulty doing errands alone? No [email or web address] Information not available 10/14/2021 Are you able to care for yourself? Yes [email or web address] Information n ot available 10/14/2021 Do you have difficulty dressing or bathing? No [email or web address] Information not available 10/14/2021 Do you or have you ever used e-cigarettes or vape? Current user of electronic cigarettes Information not available 01/12/2024 What is your exercise level? Heavy [email or web address] Information not available 10/14/2021 Mental Status Question Answer Note LastModified by Organizat ion Details LastModified Time Do you feel stressed (tense, restless, nervous, or anxious, or unable to sleep at night)? [id number] Information not available 10/14/2021 Do you have difficulty concentrating, remembering or making decisions? No [email or web address] Information no t available 10/14/2021 Family History Relationship Description Onset Age of this Age Resolved Age Notes LastModified by Organization Details LastModified Time Mother Disorder of thyroid gland Not available 2020 14:36:31 Medical History Condition Response Diabetes Y Immunizations Vaccine Type Date Status Note Provider Nam e and Address Organization Details Recorded Time Tdap 04/01/2010 completed Corinne Sylvester RN [address], [place], [address], [place] - [facility] 10/29/2016 13:43:12 Hep B, adolescent or pediatric 08/09/1997 completed Corinne Sylvester RN [address], [place], [address], [place] [facility] 10/29/2016 13:45:30 Hep B, adolescent or pediatric 09/20/1997 tess Sylvester RN [address], [place], [address], [place] [facility] 10/29/2016 13:45:44 Past Encounters Encounter ID Performer Location Encounter Start Date Encounter Closed Date Diagnosis/Indication Diagnosis SNOMED-CT Code Diagnosis ICD10 Code Diagnosis Note [id number] Darrell Martinez [facility] [address] [place] [address] 10/14/2021 14:32:28 10/14/2021 15:50:58 Abdominal pain 06175355 R10.9 Type 1 yair betes mellitus 27036241 E10.9 Hematochezia 358388045 K 92.1 [id number] Jamilah Summers APRN [address] [place] [address] 11/03/2021 14:30:56 11/03/2021 15:28:50 Hyperglycemia due to type 1 diabetes mellitus 5238772370 67217 E10.65 Upper resp iratory infection 85776856 J06.9 Body mass index 25-29 - overweight 201348425 Z68.28 [id number] Jamilah Summers [address] [place] [address] 02/02/2022 15:26:49 02/02/2022 16:16:47 Hyperglycemia due to type 1 diabetes mellitus 7538434604 07305 E10.65 Body mass index 25-29 - overweight 709132116 Z68.27 Acute sinusitis 51165181 J01.90 Fatigue 12079189 R53.83 Vitamin D deficiency 347 63199 E55.9 Mixed hyperlipidemia 267 703811 E78.2 [id number] Jamilah Summers [address] [place] [address] 05/18/2022 15:40:02 05/18/2022 16:17:10 Hyperglycemia due to type 1 diabetes mellitus 9749740672 28270 E10.65 Body mass index 25-29 - overweight 742093063 Z68.26 Vitamin D deficiency 347 44796 E55.9 Mixed hyperlipidemia 267 490081 E78.2 Steatotic liver disease 578283090 K76.0 [id number] Jamilah Summers [address] [place] [address] 08/19/2022 15:35:27 08/19/2022 16:01:03 Hyperglycemia due to type 1 diabetes mellitus 0082266651 38431 E10.65 Body mass index 25-29 - overweight 132743728 Z68.27 Vitamin D deficiency 347 59450 E55.9 Mixed hyperlipidemia 267 505449 E78.2 Steatotic liver disease 855942799 K76.0 [id number] Jamilah Summers [address] [place] [address] 11/25/2022 13:33:47 11/25/2022 14:22:55 Hyperglycemia due to type 1 diabetes mellitus 9381413432 06069 E10.65 Body mass index 25-29 - overweight 553075066 Z68.27 Vitamin D deficiency 347 21885 E55.9 Mixed hyperlipidemia 267 940307 E78.2 Steatotic liver disease 505485605 K76.0 Type 1 yair betes mellitus 05478894 E10.9 [id number] Jamilah Summers [address] [place] [address] 01/12/2024 12:36:21 01/12/2024 14:26:59 Hyperglycemia due to type 1 diabetes mellitus 2282841447 33529 E10.65 Body mass index 25-29 - overweight 496722170 Z68.29 Vitamin D deficiency 347 33859 E55.9 Mixed hyperlipidemia 267 574494 E78.2 Steatotic liver disease 922129530 K76.0 Fatigue 68891512 R53.83 Renewal of prescription 641639714 Z76.0 Type 1 yair betes mellitus 36356797 E10.9 [id number] Jamilah Summers [address] [place] [address] 05/03/2024 14:41:20 05/03/2024 15:34:01 Hyperglycemia due to type 1 diabetes mellitus 6382008972 77451 E10.65 Body mass index 25-29 - overweight 630082077 Z68.27 Vitamin D deficiency 347 95538 E55.9 Mixed hyperlipidemia 267 180451 E78.2 Steatotic liver disease 441545649 K76.0 [id number] Jamilah Summers [address] [place] [address] 10/04/2024 16:12:43 10/04/2024 18:00:53 Hyperglycemia due to type 1 diabetes mellitus 5483694675 41141 E10.65 Body mass index 25-29 - overweight 813527733 Z68.27 Vitamin D deficiency 347 26457 E55.9 Mixed hyperlipidemia 267 528161 E78.2 Steatotic liver disease 167104560 K76.0 Pain of le ft knee joint 5959538284 34385 M25.562 Insulin pump present 450 608641 Z96.41 [id number] Jamilah Summers [address] [place] [address] 01/09/2025 16:35:58 01/09/2025 17:08:23 Hyperglycemia due to type 1 diabetes mellitus 1929563636 43388 E10.65 Body mass index 25-29 - overweight 377965065 Z68.27 Vitamin D deficiency 347 47141 E55.9 Mixed hyperlipidemia 267 363387 E78.2 Steatotic liver disease 333444418 K76.0 Insulin pump present 450 448508 Z96.41 Type 1 yair betes mellitus 78036833 E10.9 Upper resp iratory infection 56630132 J06.9 Fatigue 54613096 R53.83 Health Concerns Section Related Observation LastModified by Organization Detai ls LastModified Time None Recorded Concern Status LastModified by Organization Details LastModified Time None Recorded Advance Directives Directive Y: Payers Insurance Date Sequence Insurance Name Policy Number Policy Meyer Covered Member ID Meyer Member ID Guarantor Name 04/01/2025 [place] Jeremie Braun Simons [id number] David Skinny Simons 05/03/2024 [place]ANCY Chao S Simons [id number] David Simons 04/01/2025 1 [employer] [place]ICA[place] H[place] Jeremie Simons [id number] David Simons 05/03/2024 1 [facility] [place] NANCY Barun Simons [id number] David Simons 05/03/2024 [place] Chao S Simons [id number] David Simons Notes Date Note Type Note Provider Name and Address Organization Details Recorded Time 11/25/2022 text/html Jeremie presents for 3 month follow up on his type 1 diabetes. At his last visit, I sent order for Omnipod gen 5 pump and Dexcom G6 CGM. I sent these prescriptions to [facility] and he has received the Dexcom but hasn't even opened the box yet. But has never gotten the pump yet - states they keep giving him the run around. His last hgb a1c was 8.6%. Today it is again 8.6%. He is currently on Lantus 35 units BID and Humalog 6 to 20 units ac. He is checking his sugar 4 times a day. He injects meal time insulin 3 times a day and adjusts his dose based on glucose readings. Past due for diabetic eye exam. Jamilah Summers, P D DRIVER [address], [place], [address], [place] - [facility] 11/25/2022 14:20:55 01/12/2024 text/html Jeremie presents for follow up on his type 1 diabetes. At his last visit, I sent order for Omnipod gen 5 pump and Dexcom G6 CGM. States he never heard from anyone and has decided to just continue MDI. His last hgb a1c was 8.6%. Today it is 9.8%. He is currently on Lantus 35 units BID and Humalog 6 to 20 units ac. He is checking his sugar 4 times a day. He injects meal time insulin 3 times a day and adjusts his dose based on glucose readings. In reviewing his glucose meter readings, his 14 day average is 341. Jamilah [place], NHAN [address], [place], [address], [facility] - [facility] 01/12/2024 14:45:21 05/03/2024 text/html Jeremie presents for follow up on his type 1 diabetes. His last hgb a1c was 9.8%. Today it is 11.0%. He is currently on Lantus 45 units BID and Humalog 20 units ac if sugar is under 300 and 30 if sugar is over 300. States his fasting sugars average around 120 to 130. Retinavue from 01/12/2024 was negative for retinopathy. Chronic issues reviewed and stable. Jamilah [place], NHAN [address], [place], [address], [facility] - [facility] 05/03/2024 15:29:06 10/04/2024 text/html Jeremie presents for follow up on his type 1 diabetes. He is wearing Minimed pump 780G system. In reviewing download, total daily insulin dose is 37.3 units. He is in manual mode 98% of the time, but he is wearing guardian sensor 67% of the time. His last hgb a1c was 11.0%. Today it is 10.2%. Retinavue from 01/12/2024 was negative for retinopathy. His left knee cap popped out twice over the past couple of weeks. His knee is now swollen and painful. Chronic issues reviewed and stable. Jamilah [place]rickee, P D DRIVER [address], [place], [address], [facility] - [facility] 10/04/2024 18:05:55 01/09/2025 text/html Jeremie presents for follow up on his type 1 diabetes. He is wearing Minimed pump 780G system. In reviewing download, total daily insulin dose is 37.3 units. He is in manual mode 98% of the time, but he is wearing guardian sensor 95% of the time. His last hgb a1c was 10.2%. Today it is 9.8%. Retinavue from 01/12/2024 was negative for retinopathy. Chronic issues reviewed and stable. Jamilah Summers, P D DRIVER [address], [place], [address], [place] [facility] 01/09/2025 17:10:16
[2025-06-02 08:04] VITALS: BP 147/84; PULSE 88; RESP 16; TEMP 36.6; O2SAT 97; BMI 24.8
[2025-06-02 08:11] LABS: Coronavirus 19, PCR Not Detected (NotDetected); Influenza A, PCR Not Detected (NotDetected); Influenza B, PCR Not Detected (NotDetected)
--- NOTE | 2025-06-02 08:16 | [facility].EDGENADL ---
Discharge Plan Disposition Patient Disposition: Home, Self-Care Condition: Good Prescriptions Prescriptions: New nystatin 100,000 unit/mL suspension 4 ml PO QID 10 Days Qty: 160 0RF Rx Instructions: swish and swallow fluconazole 200 mg tablet 200 mg PO DAILY 14 Days Qty: 14 0RF No Action insulin lispro 100 unit/mL insulin pen See Rx Instructions .ROUTE .COMPLEX Rx Instructions: 5 TIMES/DAY Referrals Follow up/Referrals: Jamilah Summers APRN [Primary Care Provider, Medical] - See instructions Activity Restrictions/Add. Instructions Additional Instructions/Restrictions: You were evaluated in the emergency department today and diagnosed with thrush. Your blood sugar was noted to be high today so please keep an eye on it at home. Please orange picker your prescriptions at the pharmacy and take them as prescribed. Take Tylenol and ibuprofen every 4-6 hours as needed for pain. Follow-up closely with your primary care provider for recheck. Return to the emergency department for new or worsening symptoms. Clinical Impressions Clinical Impression: Thrush of mouth and esophagus, Hyperglycemia Stand Alone Forms Stand Alone Forms: Work/School Release Instructions Patient Instructions: DI for Thrush, DI for Esophagitis Print Language Print Language: Hebrew Discharge ED Provider: Sherita Barrett General Adult HPI General Chief complaint: Upper Respiratory Infection Stated complaint: Sore throat/ acid reflux Time Seen by Provider: 06/02/25 07:59 Mode of Arrival: Ambulatory Source of Information: Patient Description of Symptoms (Recalled from ER Triage Doc. by RN): Patient presents to ED for sore throat that began this morning. Reports one episode of vomiting. History of Present Illness HPI narrative: This patient is a 30-year-old male with history of type 1 diabetes and tobacco use presenting to the emergency department for evaluation with concern for sore throat that started this morning. He notes it is worse anytime he swallows, coughs, or sneezes. He does note that he has a cough chronically at baseline from smoking but does not note any increase. No other concerns or complaints noted Related Data Home Medications ?Medication ?Instructions ?Recorded ?Confirmed insulin lispro 100 unit/mL See Rx Instructions .Route 03/02/23 06/02/25 subcutaneous pen .COMPLEX Diabetes Previous Rx's ?Medication ?Instructions ?Recorded fluconazole 200 mg tablet 200 mg PO DAILY 14 days #14 tabs 06/02/25 nystatin 100,000 unit/mL oral 4 ml PO QID 10 days #160 mL 06/02/25 suspension Allergies Allergy/AdvReac Type Severity Reaction Status Date / Time No Known Allergies Allergy Verified 12/28/23 13:11 [facility] Disclaimer: The information contained in this section may have been updated after the patient was seen, as this information can be updated by other users. Medical History Diabetes mellitus type 1 Diabetes Surgical History History of cholecystectomy Social History Smoking Status: Current every day smoker alcohol intake: never current occupational status: employed Travel in the last 8 weeks?: None Have you lived/traveled outside [place] in past 30 days?: No Contact w/someone who lives/traveled outside [place] past 30 days?: No Exposure to someone with infectious disease in past 14 days?: No Do you have a fever (greater than 100.4 F or 38 C)?: No Have you tested positive for COVID-19?: No Exposed to someone with COVID-19 in past 14 days?: No Do you have a sore throat?: No Do you have a cough?: No Do you have any weakness?: No Do you have any diarrhea?: No Are you experiencing any unusual bleeding?: No Do you have any muscle aches/pain?: No Do you have any abdominal pain?: No Are you experiencing loss of taste or smell?: No ROS Obtained: Yes All systems reviewed & no additional complaints except as documented Physical Exam General General appearance: alert and in no apparent distress Head Head exam: atraumatic and normocephalic Eye Eye exam: Present normal appearance, PERRL and EOMI ENT ENT exam: Present mucous membranes moist, normal external ear exam and other (Oral thrush and posterior oropharyngeal erythema and exudates. No uvular swelling or deviation. No drooling, stridor, or trismus.) Neck Neck exam: Present normal inspection, full ROM and trachea midline; Absent tenderness Chest Chest inspection: Present normal inspection and symmetric chest wall rise; Absent tenderness Respiratory Respiratory exam: Present normal lung sounds bilaterally; Absent respiratory distress, wheezes, stridor or accessory muscle use Cardiovascular Cardiovascular exam: Present regular rate and normal rhythm Abdominal Exam Abdominal exam: Present soft; Absent distention, tenderness or guarding Extremities Exam Extremities exam: Present normal inspection, full ROM and normal capillary refill; Absent tenderness or edema Back Exam Back exam: Present normal inspection and full ROM; Absent tenderness Neurological Exam Neurological exam: Present alert, oriented X3, CN II-XII intact and normal gait; Absent motor sensory deficit Psychiatric Psychiatric exam: Present normal affect and normal mood Skin Skin exam: Present warm and dry Medical Decision Making Medical Records Medical records reviewed: Yes I reviewed the patient's medical records. Screening: Per USPSTF and CDC recommendations, given the prevalence of disease in our region, it is our hospital?s policy to screen for HIV and viral Hepatitis for all patients aged 18 and over and those with ongoing risk factors. Lux Inquiry Pt receiving controlled substance: No Vital Signs: 06/02/25 08:00 06/02/25 08:04 06/02/25 08:30 Temperature 97.9 F Temperature Source Oral Pulse Rate 77 78 Pulse Rate [Right Radial] 88 Respiratory Rate 16 Blood Pressure 147/84 H 126/69 Blood Pressure [Right Arm] 147/84 H Blood Pressure Mean [Right Arm] 105 02 Sat by Pulse Oximetry 97 97 97 Oxygen Delivery Method Room Air Room Air Room Air 06/02/25 09:00 06/02/25 09:30 Temperature 98.2 F Temperature Source Pulse Rate 64 70 Pulse Rate [Right Radial] Respiratory Rate 20 Blood Pressure 127/81 127/81 Blood Pressure [Right Arm] Blood Pressure Mean [Right Arm] 02 Sat by Pulse Oximetry 97 Oxygen Delivery Method Room Air Room Air Lab Data Lab results reviewed: Yes I reviewed the patient's lab results. Lab Results 06/02/25 08:02: SARS-CoV-2 (PCR) Not detected, Influenza A Untype (PCR) Not detected, Influenza Type B (PCR) Not detected, Group A Strep Rapid Negative 06/02/25 08:40: WBC 10.3, RBC 5.14, Hgb 16.6, Hct 47.6, MCV 92.6, MCH 32.3 H, MCHC 34.9, RDW 11.9, Plt Count 170, MPV 10.1, Neut % (Auto) 77.6, Lymph % (Auto) 14.1, Atkinson % (Auto) 6.6, Eos % (Auto) 1.0, Baso % (Auto) 0.5, Neut # (Auto) 8.0 H, Lymph # (Auto) 1.5, Atkinson # (Auto) 0.7, Eos # (Auto) 0.1, Baso # (Auto) 0.1, Sodium 135 L, Potassium 4.2, Chloride 99, Carbon Dioxide 26, Anion Gap 14.2, BUN 13, Creatinine 0.90, Estimated Creat Clear 137, Estimated GFR 99, Est GFR ( Amer) 120, Glucose 398 H, Calcium 9.0, Total Bilirubin 0.6, AST 32, ALT 23, Alkaline Phosphatase 76, Total Protein 7.2, Albumin 4.4, Globulin 2.8, Albumin/Globulin Ratio 1.6, HCV Ab CRESCENCIO w/Rflx PCR Qn Negative, HIV Ag/Ab Combo Qual Negative 06/02/25 08:40 06/02/25 08:40 Orders (Tests/Meds): ED MEDICATIONS Discontinued Medications Generic Name Dose Route Start Last Admin Trade Name Freq PRN Reason Stop Dose Admin Fluconazole 400 mg 06/02/25 09:07 06/02/25 09:17 Fluconazole 100mg Tablet PO 06/02/25 09:08 400 mg ONCE ONE Administration Nystatin 500,000 unit 06/02/25 08:26 06/02/25 08:30 Nystatin Susp 500,000 Units/5ml Udc PO 06/02/25 08:27 500,000 unit ONCE ONE Administration Tetracycl/Hydrocort/Nystatin/Diphen 15 ml 06/02/25 08:15 06/02/25 08:30 Magic Mouthwash 300ml Bottle PO 06/02/25 08:16 15 ml ONCE ONE Administration ORDERS Category Date Time Status Complete Blood Count Auto Diff Stat Lab 06/02/25 08:40 Completed Comprehensive Metabolic Panel Stat Lab 06/02/25 08:40 Completed HIV Combo Stat Lab 06/02/25 08:40 Completed Hepatitis C Ab Qual. W/ RFX Stat Lab 06/02/25 08:40 Completed Rapid PCR Covid and Flu A/B Stat Lab 06/02/25 08:02 Completed Rapid Strep Scrn Group A [Strep Scrn Group A (Rapid)] Lab 06/02/25 08:02 Completed Stat Strep Screen Confirmation Stat Micro 06/02/25 08:02 Received Medical Decision Narrative: In summary, this patient is a 30-year-old male presenting to the Emergency Department for evaluation of sore throat that started this morning. Differential diagnoses considered include but are not limited to thrush, strep pharyngitis, GERD, esophagitis, viral syndrome. Ruling out the most morbid conditions drove assessment. It should be noted patient's history includes type 1 diabetes and tobacco dependence which may or may not be at goal therapy. This complicates all aspects of care by increasing patient's risk for morbidity. On exam, the patient has posterior oropharyngeal and exudates with erythema as well as oral thrush. He has no posterior oropharyngeal edema, subungual swelling, drooling, trismus, or other alarm findings. Pulmonary exam is reassuring and vitals are normal on cardiac telemetry. Workup included CBC, CMP, HIV testing, hepatitis testing, strep swab, viral swab. Labs obtained demonstrated negative strep swab, negative viral swab, reassuring CBC and chemistry with exception of hyperglycemia with a glucose of 398. No concerns for DKA/HHS based on lab evaluation at this time. I feel he has a pretty significant case of thrush, as exam is impressive. Given this and the fact that he is a poorly controlled diabetic, will plan to treat with both nystatin swish and swallow as well as fluconazole. He was given instructions for supportive care and close follow-up with PCP and was discharged with this as well as with Magic mouthwash for pain control. Strict return precautions given Critical Care Critical Care Time Critical Care Time: No
[2025-06-02 08:19] LABS: Strep Scrn Group A (Rapid) Negative (Negative)
[2025-06-02 08:30] VITALS: BP 126/69; PULSE 78; O2SAT 97
[2025-06-02] MEDS: NYSTATIN SUSP 500,000 UNITS/5ML UDC 500000 UNIT PO (08:30)
[2025-06-02] MEDS: MAGIC MOUTHWASH 300ML BOTTLE 15 ML PO (08:30)
[2025-06-02 08:57] LABS: Hematocrit 47.6 % (42.0-52.0); Hemoglobin 16.6 g/dL (14.1-18.0); Immature Granulocytes % 0.2 %; Mean Corpuscular HGB Conc 34.9 g/dL (31.8-35.4); Mean Corpuscular Hemoglobin 32.3 pg (27.0-31.2); Mean Corpuscular Volume 92.6 fl (80-94); Nucleated Red Blood Cells % 0 %; Platelet Count 170 K/mm3 (142-424); Red Blood Count 5.14 M/mm3 (4.60-6.20); Red Cell Distribution Width-SD 41.4 fL; White Blood Count 10.3 K/mm3 (4.8-10.8)
[2025-06-02 09:00] VITALS: BP 127/81; PULSE 64; O2SAT 97
[2025-06-02 09:04] LABS: Albumin Level 4.4 g/dl (3.5-5.0); Chloride 99 mmol/L (98-107); Potassium 4.2 mmoL/L (3.5-5.1); Sodium 135 mmol/L (136-145)
[2025-06-02 09:06] LABS: Blood Urea Nitrogen 13 mg/dl (9-20); Creatinine Clearance Estimated 137 mL/min (50-200); Creatinine,Serum 0.90 mg/dl (0.66-1.25); Estimated Glomerular Filt Rate 99 ml/min (>60); GFR (African American) 120 ML/MIN (>60)
[2025-06-02 09:07] LABS: Alanine Aminotransferase 23 U/L (12-78); Albumin/Globulin Ratio 1.6 (1.1-1.8); Alkaline Phosphatase 76 U/L (38-126); Anion Gap 14.2 mEq/L (5-15); Aspartate Amino Transferase 32 U/L (17-59); Bilirubin,Total 0.6 mg/dl (0.2-1.3); Calcium 9.0 mg/dl (8.4-10.2); Carbon Dioxide 26 mmol/L (22.0-30.0); Globulin 2.8 g/dL (1.3-3.2); Glucose 398 mg/dl (74-100); Total Protein,Serum 7.2 g/dl (6.3-8.2)
[2025-06-02] MEDS: FLUCONAZOLE 100MG TABLET 400 MG PO (09:17)
[2025-06-02 09:30] VITALS: BP 127/81; PULSE 70; RESP 20; TEMP 36.8; O2SAT 98
[2025-06-02 09:56] LABS: Hepatitis C Ab Qual. W/ RFX NEGATIVE (Negative)
== END 2025-06-02 09:32 | disposition home or self-care (01) ==
PROVIDERS: Emergency Provider Emergency Medicine; PCP Nurse Practitioner Family
DX: B37.0 Candidal stomatitis (principal); B37.81 Candidal esophagitis; E10.65 Type 1 diabetes mellitus with hyperglycemia; F17.210 Nicotine dependence, cigarettes, uncomplicated
CPT/HCPCS: 80053; 85025; 86803; 87389; 87430; 87636; 99283